=== PATIENT | female | born 1965 | race African-American/Black ===

== ENCOUNTER 2016-07-25 08:37 | Emergency (ER) | payer OTHER ==
[~2016-07-25] VITALS: Ht 170.2 cm; Wt 74.8 kg
[2016-07-25] MEDS ORDERED: CALCIPOTRIENE60 G1 TOP (08:55)
[2016-07-25] MEDS ORDERED: OTEZLA30 MG PO (08:56)
[2016-07-25] MEDS ORDERED: SYNALAR TOP (09:27)
[2016-07-25] MEDS ORDERED: KETOCONAZOLE60 GM TP (09:27)
[2016-07-25 10:30] VITALS: BP 129/100
== END 2016-07-25 11:01 | disposition home or self-care (01) ==
LOC: ER 08:37
DX: R21 Rash and other nonspecific skin eruption (principal); I10 Essential (primary) hypertension; L40.9 Psoriasis, unspecified; Z88.8 Allergy status to other drugs, medicaments and biological substances

== ENCOUNTER 2017-09-22 02:57 | Emergency (ER) | payer OTHER ==
[~2017-09-22] VITALS: Ht 165.1 cm; Wt 81.7 kg
[~2017-09-22 02:57] MED LIST: CALCIPOTRIENE60 G1 TOP; KETOCONAZOLE60 GM TP; OTEZLA30 MG PO; SYNALAR TOP
[2017-09-22 03:03] VITALS: BP 137/90
[2017-09-22] MEDS ORDERED: DIOVAN HCT 80-1 EACH PO (03:13)
[2017-09-22] MEDS ORDERED: ZOLOFT25 MG PO (03:13)
[2017-09-22] MEDS ORDERED: CORTISPORIN OTI10 M2 OTIC (03:22)
[2017-09-22] MEDS ORDERED: AUGMENTIN 875-1 EACH PO (03:22)
== END 2017-09-22 03:50 | disposition home or self-care (01) ==
LOC: ER 02:57
DX: H60.93 Unspecified otitis externa, bilateral (principal); I10 Essential (primary) hypertension; L40.9 Psoriasis, unspecified; Z88.8 Allergy status to other drugs, medicaments and biological substances

== ENCOUNTER 2018-12-13 19:04 | Emergency (ER) | payer OTHER ==
[~2018-12-13] VITALS: Ht 165.1 cm; Wt 86.2 kg
[~2018-12-13 19:04] MED LIST changes: +AUGMENTIN 875-1 EACH PO; +CORTISPORIN OTI10 M2 OTIC; +DIOVAN HCT 80-1 EACH PO; +ZOLOFT25 MG PO
[2018-12-13 20:10] LABS: ABSOLUTE NEUTROPHILS 9.3 thou/uL (1.4-8.2); BASOPHILS 0.6 % (0.0-2.0); EOSINOPHILS 0.3 % (0.0-3.0); HEMATOCRIT 46.4 % (37.0-47.0); HEMOGLOBIN 15.5 gm/dL (12.0-15.0); LYMPHOCYTES 11.3 % (24.0-44.0); MCH 32.9 pg (26.0-34.0); MCHC 33.5 g/dL (28.0-37.0); MCV 98.1 fL (80.0-100.0); MONOCYTES 4.9 % (1.0-8.0); PLATELET COUNT 312 thou/uL (150-400); POLYS 82.9 % (36.0-66.0); RBC 4.73 mil/uL (4.20-5.00); RDW 13.7 % (10.5-14.5); WBC 11.2 thou/uL (4.0-11.0)
[2018-12-13 20:20] LABS: ALBUMIN 4.3 g/dL (3.4-5.0); CALCIUM 10.1 mg/dL (8.5-10.1); CREATININE 1.8 mg/dL (0.6-1.0); DIRECT BILIRUBIN 0.1 mg/dL (<0.1-0.3); TOTAL BILIRUBIN 0.4 mg/dL (<0.1-1.0); TOTAL PROTEIN 8.9 g/dL (6.4-8.2)
[2018-12-13 20:25] LABS: POTASSIUM 2.9 mmol/L (3.5-5.1)
[2018-12-13 20:43] LABS: URINE BLOOD NEGATIVE (Negative); URINE CLARITY CLEAR; URINE COLOR YELLOW; URINE GLUCOSE-RANDOM* NEGATIVE (Negative); URINE KETONES TRACE (Negative); URINE LEUKOCYTES-REFLEX NEGATIVE (Negative); URINE NITRITE-REFLEX NEGATIVE (Negative); URINE PROTEIN (DIPSTICK) TRACE (Negative); URINE SPECIFIC GRAVITY >= 1.030 (1.005-1.035)
[2018-12-13 20:46] LABS: ICTOTEST (BILI CONFIRMATORY) Negative (Negative); URINE BILIRUBIN NEGATIVE (Negative)
[2018-12-13] MEDS ORDERED: POTASSIUM20 PO (21:35)
[2018-12-13 22:05] VITALS: BP 120/81
--- NOTE | 2018-12-14 12:52 | EKG ---
[place] [address] [facility] [employer] [place] [address] ELECTROCARDIOGRAM REPORT Name: BETO TELLEZ Room #: [facility] Fleming#: [id number] Admission: 12/13/18 Attend Phys: Discharge: 12/13/18 Date of : 67 Report #: [id number] THIS REPORT FOR: //name// [facility] ED Test Date: 2018-12-13 Test Time: 19:37:33 Pat Name: BETO TELLEZ Department: Room: Gender: F Benefit Authorizer: julian palm : [id number] Requested By: Ramona Longoria Order Number: [id number] MD: Johnny Hanks Measurements Intervals [place] Rate: 100 P: 44 CA: 150 QRS: -67 QRSD: 96 T: 17 QT: 362 QTc: 467 Interpretive Statements Sinus tachycardia Probable left atrial enlargement Left anterior fascicular block Abnormal R-wave progression, late transition Left ventricular hypertrophy Borderline T abnormalities, anterior leads Baseline wander in lead(s) I,II,aVR,V1,V3,V4,V5,V6 No previous ECG available for comparison Electronically Signed On 12-14-2018 12:52:15 CDT by Johnny Hanks [email or web address] <ELECTRONICALLY SIGNED> By: Johnny Hanks MD 12/14/18 1252 36 36 Johnny Hanks MD /EPI
== END 2018-12-13 22:11 | disposition home or self-care (01) ==
LOC: ER 19:04
PROVIDERS: Emergency Medicine
DX: S01.01XA Laceration without foreign body of scalp, initial encounter (principal); N17.9 Acute kidney failure, unspecified; E87.6 Hypokalemia; E86.0 Dehydration; I95.1 Orthostatic hypotension; I10 Essential (primary) hypertension; Z88.8 Allergy status to other drugs, medicaments and biological substances; W18.39XA Other fall on same level, initial encounter; Y92.89 Other specified places as the place of occurrence of the external cause; Y93.89 Activity, other specified; Y99.8 Other external cause status